=== PATIENT | male | born 1950 | race Caucasian/White ===

== ENCOUNTER 2017-08-07 10:08 | Inpatient (IN) | payer MEDICARE, BC ==
[~2017-08-07 10:08] MED LIST: Bisacodyl 5 MG Tab PO PRN; Cyclobenzaprine 10 MG Tab PO PRN; Docusate Sodium 100 MG Cap PO PRN; EPINEPHrine 1 MG/ML SDV ONE; Lactated Ringers 1,000 ML IV SCH; Lidocaine 1%/Sod Bicarbonate in NS 8.4% 1 ML Syringe IV PRN; Magnesium Hydroxide 400 MG/5 ML Susp 30 ML Cup PO PRN; Morphine 2 MG/ML Syringe IVPUSH PRN; Naloxone 0.4 MG/ML SDV IVPUSH PRN; Ondansetron 4 MG/2 ML SDV IVPUSH PRN; Ropivacaine 0.5% 5 MG/ML 30 ML SDV ONE; Sennosides 8.6 MG Tab PO PRN; Sodium Chloride 0.9% 10 ML Syringe FLUSH PRN
[2017-08-07] MEDS ORDERED: fentaNYL 250 MCG/5 ML SDV ONE (10:36)
[2017-08-07] MEDS ORDERED: Midazolam 1 MG/ML 2 ML SDV ONE (10:36)
[2017-08-07] MEDS ORDERED: Lidocaine 1% 4 ML ONE (10:36)
[2017-08-07] MEDS ORDERED: Rocuronium 50 MG/5 ML Vial ONE (10:36)
[2017-08-07] MEDS ORDERED: Propofol 200 MG/20 ML SDV ONE (10:36)
--- NOTE | 2017-08-07 10:49 | PCM.PREANE ---
Preanesthetic Assessment - Anesthesia/Transfusion/Family Hx Anesthesia History: Prior Anesthesia Without Reaction Family History of Anesthesia Reaction: No Transfusion History: Prior Transfusion Reaction - Review of Systems General: No Symptoms Pulmonary: No Symptoms Cardiovascular: No Symptoms Gastrointestinal: No Symptoms Neurological: No Symptoms Other: Reports: Thyroid Problems, Neck Pain (occ stiff neck ) - Physical Assessment NPO Status Date: 08/06/17 NPO Status Time: 21:30 Pulse: 63 O2 Sat by Pulse Oximetry: 96 Respiratory Rate: 18 Blood Pressure: 150/76 Temperature: 97 F Height: 5 ft 10 in Weight: 104.901 kg ASA Class: 2 Mental Status: Alert & Oriented x3 Airway Class: Mallampati = 1 Dentition: Reports: Normal Dentition Thyro-Mental Finger Breadths: 3 Mouth Opening Finger Breadths: 3 ROM/Head Extension: Full Lungs: Clear to Auscultation, Normal Respiratory Effort Cardiovascular: Regular Rate, Regular Rhythm - Lab Values: 07/18/17 Labs\ Hgb 14.4 Plt 228 Na 131 K 4.4 C; 95 Co2 27 BUN 17 Cr 0.8 - Imaging/EKG Impressions: 07/18/17 CXR Nothing acute 07/17/17 EKG SR 58 prolonged AK interval- LBBB - Allergies Allergies/Adverse Reactions: Allergies Allergy/AdvReac Type Severity Reaction Status Date / Time No Known Allergies Allergy Verified 08/04/17 14:37 - Blood Blood Available: No - Acknowledgements Anesthesia Type Planned: General Anesthesia Pt an Appropriate Candidate for the Planned Anesthesia: Yes Alternatives and Risks of Anesthesia Discussed w Pt/Guardian: Yes Pt/Guardian Understands and Agrees with Anesthesia Plan: Yes PreAnesthesia Questionnaire HEENT History: Reports: Impaired Vision Cardiovascular History: Reports: High Cholesterol, Hypertension, Other (See Below) Other Cardiovascular History: abnormal EKG Respiratory History: Reports: PE, Sleep Apnea Genitourinary History: Reports: None SILK WEAVER History: Reports: None Musculoskeletal History: Reports: Osteoarthritis, Other (See Below) Other Musculoskeletal History: left knee pain, right shoulder pain, shoulder arthritis, Neurological History: Reports: None Psychiatric History: Reports: Other (See Below) Other Psychiatric History: narcalepsy Endocrine/Metabolic History: Reports: Hypothyroidism, Obesity/BMI 30+ Hematologic History: Reports: None Immunologic History: Reports: None Oncologic (Cancer) History: Reports: None Dermatologic History: Reports: None - Past Surgical History Head Surgeries/Procedures: Reports: None HEENT Surgical History: Reports: Tonsillectomy Respiratory Surgical History: Reports: None GI Surgical History: Reports: Appendectomy, Colonoscopy Female Surgical History: Reports: None Male Surgical History: Reports: None Endocrine Surgical History: Reports: None Neurological Surgical History: Reports: None Musculoskeletal Surgical History: Reports: Knee Replacement, Other (See Below) Other Musculoskeletal Surgeries/Procedures:: lower back surgery, right femur hardware, Oncologic Surgical History: Reports: None - SUBSTANCE USE Smoking Status *Q: Former Smoker (quit 1972) Tobacco Use Within Last Twelve Months: No Second Hand Smoke Exposure: No Days Per Week of Alcohol Use: 1 Number of Drinks Per Day: 2 Total Drinks Per Week: 2 Recreational Drug Use History: No - HOME MEDS Home Medications: Home Meds Hydrochlorothiazide 25 mg PO DAILY 03/11/16 [History] Modafinil [Provigil] 400 mg PO DAILY 03/11/16 [History] Levothyroxine 175 mcg PO DAILY 08/04/17 [History] - CURRENT (IN HOUSE) MEDS Current Meds: Current Medications Aspirin (Ecotrin) 325 mg PO DAILY TORREY Bisacodyl (Dulcolax) 5 mg PO DAILY PRN PRN Reason: Constipation Cyclobenzaprine HCl (Flexeril) 10 mg PO TID PRN PRN Reason: Spasms Docusate Sodium (Colace) 100 mg PO BID PRN PRN Reason: Constipation Famotidine (Pepcid) 20 mg PO BID [facility] Lactated Ringer's (Ringers, Lactated) 1,000 mls @ 125 mls/hr IV ASDIRECTED [facility] Stop: 08/07/17 23:00 Cefazolin Sodium/Dextrose 2 gm (/ Premix) 50 mls @ 100 mls/hr IV Q8H [facility] Stop: 08/08/17 13:29 Lidocaine/Sodium Bicarbonate (Buffered Lidocaine 1% In Ns 8.4%) 0.25 ml IV ONETIME PRN PRN Reason: Prior to IV Start Stop: 08/07/17 18:00 Magnesium Hydroxide (Milk Of Magnesia) 30 ml PO BID PRN PRN Reason: Constipation Morphine Sulfate (Morphine) 2 mg IVPUSH Q2H PRN PRN Reason: Breakthrough Pain Naloxone HCl (Narcan) 0.1 mg IVPUSH Q5M PRN PRN Reason: Oversedation Ondansetron HCl (Zofran) 4 mg IVPUSH Q6H PRN PRN Reason: Nausea/Vomiting Oxycodone/Acetaminophen (Percocet 325-5 Mg) 1 - 2 tab PO Q4H PRN PRN Reason: Pain Senna (Senna) 8.6 mg PO BID PRN PRN Reason: Constipation Sodium Chloride (Saline Flush) 10 ml FLUSH ASDIRECTED PRN PRN Reason: Keep Vein Open Stop: 08/07/17 18:00 Discontinued Medications Cefazolin Sodium (Ancef) Confirm Administered Dose 2 gm .ROUTE .STK-MED ONE Stop: 08/07/17 10:54 Epinephrine HCl (Adrenalin 1:1000) Confirm Administered Dose 1 mg .ROUTE .STK- MED ONE Stop: 08/07/17 09:49 Fentanyl (Sublimaze) Confirm Administered Dose 250 mcg .ROUTE .STK-MED ONE Stop: 08/07/17 10:37 Lidocaine HCl (Xylocaine-Mpf 1%) Confirm Administered Dose 4 mls @ as directed .ROUTE .STK-MED ONE Stop: 08/07/17 10:37 Lactated Ringer's (Ringers, Lactated) Confirm Administered Dose 1,000 mls @ as directed .ROUTE .STK-MED ONE Stop: 08/07/17 10:54 Midazolam HCl (Versed 1 Mg/Ml) Confirm Administered Dose 2 mg .ROUTE .STK-MED ONE Stop: 08/07/17 10:37 Propofol (Diprivan 20 Ml) Confirm Administered Dose 200 mg .ROUTE .STK-MED ONE Stop: 08/07/17 10:37 Rocuronium Allyn (Zemuron) Confirm Administered Dose 50 mg .ROUTE .STK-MED ONE Stop: 08/07/17 10:37 Ropivacaine (Naropin 0.5%) Confirm Administered Dose 30 ml .ROUTE .STK-MED ONE Stop: 08/07/17 09:49
[2017-08-07] MEDS ORDERED: Lactated Ringers 1,000 ML ONE ×3 (10:53→16:16)
[2017-08-07] MEDS ORDERED: ceFAZolin 1 GM Vial ONE (10:59)
--- NOTE | 2017-08-07 11:55 | PCM.SN ---
- Free Text/Narrative Note: 08/07/17 1106- 1122 Time out performed. Requested to place right interscale block with ultrasound guidance and nerve stimulator for post op pain control per Dr. Rosario and patient. Preop diagnosis right shoulder osteoarthritis Procedure is right shoulder arthroplasty versus reverse total shoulder arthroplasty. Informed consent obtained. Monitors and O2 placed at 2 l per n/c. Versed 2 mg and Fentanyl 100 mcg given IV total. Patient awake and talking during procedure. Right neck and clavicle area prepped with chlorprep. Sterile gloves, hat and mask worn. US probe with sterile sleeve placed midclavicular with ID of brachial plexus and subclavian artery. Brachial plexus followed cephalad to level of cricoid. Lidocaine 1% local anesthetic injected prior to block placement. 22 g 2 inch stimplex needle advanced with US guidance to brachial plexus. Positive forearm response at .3 SmA with nerve stimulator. Ceased with saline injection.Ropivacaine 0.5% with epi 1:200,000 injected in increments of 5 ml with negative aspiration before each injection to a total of 30 ml. Good spread of local anesthetic seen on US. Patient tolerated procedure well. Vitals stable with no complaints. See nurses notes for VS. Post VS 125/74 96% 10 55
[2017-08-07] MEDS ORDERED: Ondansetron 4 MG/2 ML SDV IVPUSH PRN (13:37)
[2017-08-07] MEDS ORDERED: ePHEDrine 50 MG/ML SDV ONE (13:50)
[2017-08-07] MEDS ORDERED: fentaNYL 100 MCG/2 ML SDV ONE (14:16)
[2017-08-07] MEDS: Bupivacaine 0.25% 30 ML SDV ONE ×2 (14:41→15:37)
[2017-08-07] MEDS: ceFAZolin 1 GM Vial ONE ×2 (14:41→15:30)
[2017-08-07] MEDS: Iodine/Sodium Iodide 2% Tincture 30 ML Bottle ONE ×2 (14:42→15:29)
[2017-08-07] MEDS: Vancomycin 1 GM SDV ONE ×2 (14:43→15:34)
[2017-08-07] MEDS: HYDROmorphone 0.5 MG/0.5 ML Syringe IVPUSH PRN ×2 (16:13→16:32)
--- NOTE | 2017-08-07 16:14 | CR ---
Right shoulder: Three fluoroscopic spot views of the right shoulder were obtained. Study obtained utilizing C-arm device. Comparison: No prior hip study. Right shoulder prosthesis is seen. Components are aligned. Underlying bony structures appear intact. Fluoroscopy time not given at time of dictation. Impression: 1. Operative study showing right shoulder prosthesis. Diagnostic code #2
--- NOTE | 2017-08-07 16:17 | PCM.POSTAN ---
POST ANESTHESIA ASSESSMENT - MENTAL STATUS Mental Status: Alert, Oriented - VITAL SIGNS Pulse Rate: 69 SaO2: 97 Resp Rate: 17 Blood Pressure: 148/88 Temperature: 98.2 F - RESPIRATORY Respiratory Status: Respiratory Rate WNL, Airway Patent, O2 Saturation Stable, Supplemental Oxygen - CARDIOVASCULAR CV Status: Pulse Rate WNL, Blood Pressure Stable - GASTROINTESTINAL GI Status: No Symptoms - PAIN Pain Score: 4 - POST OP HYDRATION Hydration Status: Adequate & Stable
[2017-08-07] MEDS: fentaNYL 100 MCG/2 ML SDV IVPUSH PRN ×2 (16:24→16:45)
[2017-08-07] MEDS ORDERED: HYDROmorphone 0.5 MG/0.5 ML Syringe IVPUSH PRN (16:42)
--- NOTE | 2017-08-07 16:54 | CR ---
Right shoulder: Portable view of the right shoulder was obtained. Comparison: Previous operative study performed earlier on the same day. Right shoulder prosthesis is seen. Components are aligned. Bony structures are osteopenic. Soft tissue air noted from the surgical procedure. Impression: 1. Satisfactory postoperative radiographic appearance of recently placed right shoulder prosthesis. Diagnostic code #2
[2017-08-07] MEDS ORDERED: Pneumococcal Polyvalent-23 Vaccine 0.5 ML SDV IM ONE (17:44)
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
[2017-08-07] MEDS: Acetaminophen/oxyCODONE 325-5 MG Tab PO PRN (21:30)
[2017-08-07] MEDS: Famotidine 20 MG Tab PO SCH (21:31)
[2017-08-07] MEDS: ceFAZolin 2 GM in Premix Bag 1 BAG IV SCH (21:33)
[2017-08-07] MEDS ORDERED: hydrALAZINE 10 MG Tab PO PRN (21:35)
[2017-08-08] MEDS: ceFAZolin 2 GM in Premix Bag 1 BAG IV SCH ×2 (04:53→13:27)
[2017-08-08] MEDS: Acetaminophen/oxyCODONE 325-5 MG Tab PO PRN ×2 (04:54→09:56)
[2017-08-08] MEDS ORDERED: Diphtheria,Pertussis(Acell),Tetanus Vaccine 0.5 ML SDV IM ONE (08:04)
[2017-08-08] MEDS ORDERED: Aspirin 325 MG Tab.EC PO SCH (09:00)
[2017-08-08] MEDS ORDERED: Modafinil 200 MG Tab PO SCH (09:00)
[2017-08-08] MEDS ORDERED: Hydrochlorothiazide 25 MG Tab PO SCH (09:00)
[2017-08-08] MEDS: Famotidine 20 MG Tab PO SCH (09:55)
--- NOTE | 2017-08-08 10:24 | PCM48HPAN ---
Post Anesthesia Note - EVALUATION WITHIN 48HRS OF ANESTHETIC Vital Signs in Normal Range: Yes Patient Participated in Evaluation: Yes Respiratory Function Stable: Yes Airway Patent: Yes Cardiovascular Function Stable: Yes Hydration Status Stable: Yes Pain Control Satisfactory: Yes Nausea and Vomiting Control Satisfactory: Yes Mental Status Recovered: Yes
--- NOTE | 2017-08-08 11:28 | PCM.CONSN ---
- General Info Date of Service: 08/08/17 Admission Dx/Problem (Free Text): Admission Diagnosis/Problem Admission Diagnosis/Problem Osteoarthritis of glenohumeral joint POD #[address] Rosario. Pain under good control, no nausea. Voiding. BM this am. Tolerating meals. Ambulating and doing well with PT. Brace fitting well. VSS. Labs stable, hgb 12.3 Functional Status: Reports: Pain Controlled, Tolerating Diet, Ambulating, Urinating, Incentive Spirometry. Denies: New Symptoms - Review of Systems General: Reports: No Symptoms HEENT: Reports: No Symptoms Pulmonary: Reports: No Symptoms Cardiovascular: Reports: No Symptoms Gastrointestinal: Reports: No Symptoms Genitourinary: Reports: No Symptoms Musculoskeletal: Reports: Shoulder Pain, Arm Pain Skin: Reports: No Symptoms Neurological: Reports: No Symptoms Psychiatric: Reports: No Symptoms - Patient Data Vitals - Most Recent: Last Vital Signs Temp 96.6 F 08/08/17 09:11 Pulse 74 08/08/17 09:11 Resp 19 08/08/17 09:11 BP 129/59 L 08/08/17 09:11 Pulse Ox 92 L 08/08/17 09:11 Weight - Most Recent: 240 lb 14.4 oz I&O - Last 24 Hours: Intake & Output 08/07/17 08/08/17 08/08/17 22:59 06:59 14:59 Intake Total 180 1955 Output Total 400 Balance 180 1555 Lab Results Last 24 Hours: Laboratory Results - last 24 hr 08/08/17 08/08/17 Range/Units 05:33 05:33 WBC 7.30 (4.23-9.07) K/mm3 RBC 4.00 L (4.63-6.08) M/mm3 Hgb 12.3 L (13.7-17.5) gm/L Hct 36.1 L (40.1-51.0) % MCV 90.3 (79.0-92.2) fl MCH 30.8 (25.7-32.2) pg MCHC 34.1 (32.2-35.5) g/dl RDW Std Deviation 43.3 (35.1-43.9) fL Plt Count 192 (163-337) K/mm3 MPV 11.0 (9.4-12.3) fl Sodium 134 L (136-145) mEq/L Potassium 3.8 (3.5-5.1) mEq/L Chloride 99 (98-107) mEq/L Carbon Dioxide 26 (21-32) mEq/L Anion Gap 12.8 (5-15) BUN 13 (7-18) mg/dL Creatinine 0.9 (0.7-1.3) mg/dL Est Cr Clr Drug Dosing 82.24 mL/min Estimated GFR (MDRD) > 60 (>60) mL/min BUN/Creatinine Ratio 14.4 (14-18) Glucose 159 H (80-115) mg/dL Calcium 8.2 L (8.5-10.1) mg/dL Total Bilirubin 0.5 (0.2-1.0) mg/dL AST 28 (15-37) U/L ALT 34 (16-63) U/L Alkaline Phosphatase 72 (46-116) U/L Total Protein 5.9 L (6.4-8.2) g/dl Albumin 2.7 L (3.4-5.0) g/dl Globulin 3.2 gm/dL Albumin/Globulin Ratio 0.8 L (1-2) Med Orders - Current: Current Medications Aspirin (Ecotrin) 325 mg PO DAILY [facility] Last Admin: 08/08/17 09:55 Dose: 325 mg Bisacodyl (Dulcolax) 5 mg PO DAILY PRN PRN Reason: Constipation Cyclobenzaprine HCl (Flexeril) 10 mg PO TID PRN PRN Reason: Spasms Last Admin: 08/07/17 23:59 Dose: 10 mg Docusate Sodium (Colace) 100 mg PO BID PRN PRN Reason: Constipation Famotidine (Pepcid) 20 mg PO BID [facility] Last Admin: 08/08/17 09:55 Dose: 20 mg Hydrochlorothiazide (Hydrochlorothiazide) 25 mg PO DAILY [facility] Last Admin: 08/08/17 09:55 Dose: 25 mg Cefazolin Sodium/Dextrose 2 gm (/ Premix) 50 mls @ 100 mls/hr IV Q8H [facility] Stop: 08/08/17 13:29 Last Admin: 08/08/17 04:53 Dose: 100 mls/hr Levothyroxine Sodium (Levothyroxine) 175 mcg PO ACBRK [facility] Last Admin: 08/08/17 05:42 Dose: Not Given Magnesium Hydroxide (Milk Of Magnesia) 30 ml PO BID PRN PRN Reason: Constipation Modafinil (Provigil) 400 mg PO DAILY [facility] Last Admin: 08/08/17 09:55 Dose: 200 mg Morphine Sulfate (Morphine) 2 mg IVPUSH Q2H PRN PRN Reason: Breakthrough Pain Naloxone HCl (Narcan) 0.1 mg IVPUSH Q5M PRN PRN Reason: Oversedation Ondansetron HCl (Zofran) 4 mg IVPUSH Q6H PRN PRN Reason: Nausea/Vomiting Oxycodone/Acetaminophen (Percocet 325-5 Mg) 1 - 2 tab PO Q4H PRN PRN Reason: Pain Last Admin: 08/08/17 09:56 Dose: 2 tab Senna (Senna) 8.6 mg PO BID PRN PRN Reason: Constipation Discontinued Medications Bupivacaine HCl (Marcaine 0.25%) Confirm Administered Dose 30 ml .ROUTE .STK- MED ONE Stop: 08/07/17 11:00 Last Admin: 08/07/17 15:37 Dose: 10 ml Cefazolin Sodium (Ancef) Confirm Administered Dose 2 gm .ROUTE .STK-MED ONE Stop: 08/07/17 10:54 Last Admin: 08/07/17 15:30 Dose: 2 gm Cefazolin Sodium (Ancef) Confirm Administered Dose 2 gm .ROUTE .STK-MED ONE Stop: 08/07/17 11:00 Diphtheria/Tetanus/Acell Pertussis (Adacel) 0.5 ml IM .ONCE ONE Stop: 08/08/17 08:05 Ephedrine Sulfate (Ephedrine Sulfate) Confirm Administered Dose 50 mg .ROUTE .STK-MED ONE Stop: 08/07/17 13:51 Epinephrine HCl (Adrenalin 1:1000) Confirm Administered Dose 1 mg .ROUTE .STK- MED ONE Stop: 08/07/17 09:49 Fentanyl (Sublimaze) Confirm Administered Dose 250 mcg .ROUTE .STK-MED ONE Stop: 08/07/17 10:37 Fentanyl (Sublimaze) 50 mcg IVPUSH Q5M PRN PRN Reason: Pain Stop: 08/07/17 16:00 Last Admin: 08/07/17 16:45 Dose: 50 mcg Fentanyl (Sublimaze) Confirm Administered Dose 100 mcg .ROUTE .STK-MED ONE Stop: 08/07/17 14:17 Hydralazine HCl (Apresoline) 10 mg PO Q6H PRN PRN Reason: Hypertension Hydromorphone HCl (Dilaudid) 0.5 mg IVPUSH Q15M PRN PRN Reason: severe pain Stop: 08/07/17 16:00 Last Admin: 08/07/17 16:32 Dose: 0.5 mg Hydromorphone HCl (Dilaudid) 0.5 mg IVPUSH Q15M PRN PRN Reason: severe pain Last Admin: 08/07/17 16:50 Dose: 0.5 mg Lactated Ringer's (Ringers, Lactated) 1,000 mls @ 125 mls/hr IV ASDIRECTED [facility] Stop: 08/07/17 23:00 Last Admin: 08/07/17 10:50 Dose: 125 mls/hr Lidocaine HCl (Xylocaine-Mpf 1%) Confirm Administered Dose 4 mls @ as directed .ROUTE .STK-MED ONE Stop: 08/07/17 10:37 Lactated Ringer's (Ringers, Lactated) Confirm Administered Dose 1,000 mls @ as directed .ROUTE .STK-MED ONE Stop: 08/07/17 10:54 Lactated Ringer's (Ringers, Lactated) Confirm Administered Dose 1,000 mls @ as directed .ROUTE .STK-MED ONE Stop: 08/07/17 14:44 Lactated Ringer's (Ringers, Lactated) Confirm Administered Dose 1,000 mls @ as directed .ROUTE .STK-MED ONE Stop: 08/07/17 16:17 Iodine (Iodine 2% Mild Tincture) Confirm Administered Dose 30 ml .ROUTE .STK- MED ONE Stop: 08/07/17 11:00 Last Admin: 08/07/17 15:29 Dose: 18 ml Lidocaine/Sodium Bicarbonate (Buffered Lidocaine 1% In Ns 8.4%) 0.25 ml IV ONETIME PRN PRN Reason: Prior to IV Start Stop: 08/07/17 18:00 Last Admin: 08/07/17 10:50 Dose: 0.25 ml Midazolam HCl (Versed 1 Mg/Ml) Confirm Administered Dose 2 mg .ROUTE .STK-MED ONE Stop: 08/07/17 10:37 Ondansetron HCl (Zofran) 4 mg IVPUSH ONETIME PRN PRN Reason: Nausea/Vomiting Stop: 08/07/17 16:00 Pneumococcal Polyvalent Vaccine (Pneumovax 23) 0.5 ml IM .ONCE ONE Stop: 08/07/17 17:45 Propofol (Diprivan 20 Ml) Confirm Administered Dose 200 mg .ROUTE .STK-MED ONE Stop: 08/07/17 10:37 Rocuronium [place] (Zemuron) Confirm Administered Dose 50 mg .ROUTE .STK-MED ONE Stop: 08/07/17 10:37 Ropivacaine (Naropin 0.5%) Confirm Administered Dose 30 ml .ROUTE .STK-MED ONE Stop: 08/07/17 09:49 Sodium Chloride (Saline Flush) 10 ml FLUSH ASDIRECTED PRN PRN Reason: Keep Vein Open Stop: 08/07/17 18:00 Tranexamic Acid (Cyklokapron) Confirm Administered Dose 1,000 mg .ROUTE .STK- MED ONE Stop: 08/07/17 10:59 Last Admin: 08/07/17 15:35 Dose: 1,000 mg Vancomycin HCl (Vancomycin) Confirm Administered Dose 1 gm .ROUTE .STK-MED ONE Stop: 08/07/17 11:00 Last Admin: 08/07/17 15:34 Dose: 1 gm - Exam Quality Assessment: DVT Prophylaxis General: Alert, Oriented, Cooperative, No Acute Distress HEENT: Pupils Equal, EOMI, Mucous Membr. Moist/[place] Neck: Supple Lungs: Clear to Auscultation, Normal Respiratory Effort, Decreased Breath Sounds (bases) Cardiovascular: Regular Rate, Regular Rhythm GI/Abdominal Exam: Normal Bowel Sounds, Soft, Non-Tender (Male) Exam: Deferred Extremities: No Pedal Edema, Normal Capillary Refill, Other (brace to rt arm/ shoulder; ice to rt shoulder. Wiggles fingers to rt, CMS +) Peripheral Pulses: 2+: Radial (L), Radial (R) Neurological: No New Focal Deficit Psy/Mental Status: Alert, Normal Affect, Normal Mood Consult PN Assessment/Plan POD#: 1 Procedures: Procedures ASSAY OF FERRITIN (02/19/16) ASSAY OF FREE THYROXINE (03/17/17) ASSAY OF PREALBUMIN (07/18/17) ASSAY OF SERUM ALBUMIN (07/18/17) ASSAY THYROID STIM HORMONE (03/17/17) CARDIOVASCULAR STRESS TEST (03/02/16) CHEST X-RAY 2VW FRONTAL&LATL (07/18/17) COMPLETE CBC W/AUTO DIFF WBC (07/18/17) COMPREHEN METABOLIC PANEL (03/14/16) DXA BONE DENSITY AXIAL (07/25/17) GAIT TRAINING THERAPY (03/14/16) HT MUSCLE IMAGE SPECT MULT (03/02/16) LIPID PANEL (11/04/16) MEASURE BLOOD OXYGEN LEVEL (03/14/16) METABOLIC PANEL TOTAL CA (07/18/17) MR-STAPH DNA AMP PROBE (07/25/17) OT EVALUATION (03/14/16) PROTHROMBIN TIME (07/18/17) PT EVALUATION (03/14/16) ROUTINE VENIPUNCTURE (03/14/16) SELF CARE MNGMENT TRAINING (03/14/16) THERAPEUTIC ACTIVITIES (03/14/16) THERAPEUTIC EXERCISES (03/14/16) THROMBOPLASTIN TIME PARTIAL (07/18/17) TOTAL KNEE ARTHROPLASTY (03/14/16) X-RAY EXAM OF KNEE 1 OR 2 (03/14/16) (1) Status post total shoulder arthroplasty SNOMED Code(s): 403147660 Code(s): Z96.619 - PRESENCE OF UNSPECIFIED ARTIFICIAL SHOULDER JOINT Priority: High Current Visit: Yes Qualifiers: Laterality: right Qualified Code(s): Z96.611 - Presence of right artificial shoulder joint (2) Osteoarthritis SNOMED Code(s): 152559271 Code(s): M19.90 - UNSPECIFIED OSTEOARTHRITIS, UNSPECIFIED SITE Priority: High Current Visit: Yes Qualifiers: Osteoarthritis location: shoulder Osteoarthritis type: primary Laterality : right Qualified Code(s): M19.011 - Primary osteoarthritis, right shoulder (3) HTN (hypertension) SNOMED Code(s): 86399546 Code(s): I10 - ESSENTIAL (PRIMARY) HYPERTENSION Priority: Low Current Visit: Yes Qualifiers: Hypertension type: unspecified Qualified Code(s): I10 - Essential (primary ) hypertension (4) LBBB (left bundle branch block) SNOMED Code(s): 81243618 Code(s): I44.7 - LEFT BUNDLE-BRANCH BLOCK, UNSPECIFIED Priority: Low Current Visit: No (5) HLD (hyperlipidemia) SNOMED Code(s): 02397746 Code(s): E78.5 - HYPERLIPIDEMIA, UNSPECIFIED Priority: Low Current Visit : No Qualifiers: Hyperlipidemia type: unspecified Qualified Code(s): E78.5 - Hyperlipidemia , unspecified (6) Sleep apnea SNOMED Code(s): 21081080 Code(s): G47.30 - SLEEP APNEA, UNSPECIFIED Priority: Low Current Visit: No Qualifiers: Sleep apnea type: unspecified type Qualified Code(s): G47.30 - Sleep apnea , unspecified (7) Hypothyroidism SNOMED Code(s): 33322519 Code(s): E03.9 - HYPOTHYROIDISM, UNSPECIFIED Priority: Low Current Visit : No Qualifiers: Hypothyroidism type: unspecified Qualified Code(s): E03.9 - Hypothyroidism , unspecified Problem List Initiated/Reviewed/Updated: Yes Plan: I/P: Acute: S/P right total shoulder arthroplasty - postoperative day 1 -DVT prophylaxis and pain management per primary care team -PT/OT -IS/RT -VSS -Labs stable, hgb 12.3 Osteoarthritis of right glenohumeral joint--as above -Pain management per primary care team Chronic: Hypertension- stable; cont home meds HLD - cont home meds LBBB Sleep apnea - Home CPAP, RT to apply Hypothyroidism -cont home meds Obesity Plan: SW/CM for discharge planning--OK to [place] home today with from Hospitalist standpoint; doing well, medically stable. GI prophylaxis Home medications as indicated Other orders as listed above Routine AM labs He is a full code. His PCP is Anmol Velazquez PA-C at [facility]
[2017-08-08 12:48] VITALS: BP 135/80
--- NOTE | 2017-08-08 13:50 | PCM.SURGPN ---
- General Info Date of Service: 08/08/17 POD#: 1 Functional Status: Reports: Pain Controlled, Tolerating Diet, Ambulating, Urinating, Incentive Spirometry, Other (The pt feels prepared for discharge to home. ) - Patient Data Vitals - Most Recent: Last Vital Signs Temp 97.9 F 08/08/17 12:09 Pulse 73 08/08/17 12:09 Resp 19 08/08/17 12:09 BP 135/80 08/08/17 12:09 Pulse Ox 95 08/08/17 12:09 Weight - Most Recent: 240 lb 14.4 oz I&O - Last 24 Hours: Intake & Output 08/07/17 08/08/17 08/08/17 22:59 06:59 14:59 Intake Total 180 1955 Output Total 400 Balance 180 1555 Lab Results Last 24 Hrs: Laboratory Results - last 24 hr 08/08/17 08/08/17 Range/Units 05:33 05:33 WBC 7.30 (4.23-9.07) K/mm3 RBC 4.00 L (4.63-6.08) M/mm3 Hgb 12.3 L (13.7-17.5) gm/L Hct 36.1 L (40.1-51.0) % MCV 90.3 (79.0-92.2) fl MCH 30.8 (25.7-32.2) pg MCHC 34.1 (32.2-35.5) g/dl RDW Std Deviation 43.3 (35.1-43.9) fL Plt Count 192 (163-337) K/mm3 MPV 11.0 (9.4-12.3) fl Sodium 134 L (136-145) mEq/L Potassium 3.8 (3.5-5.1) mEq/L Chloride 99 (98-107) mEq/L Carbon Dioxide 26 (21-32) mEq/L Anion Gap 12.8 (5-15) BUN 13 (7-18) mg/dL Creatinine 0.9 (0.7-1.3) mg/dL Est Cr Clr Drug Dosing 82.24 mL/min Estimated GFR (MDRD) > 60 (>60) mL/min BUN/Creatinine Ratio 14.4 (14-18) Glucose 159 H (80-115) mg/dL Calcium 8.2 L (8.5-10.1) mg/dL Total Bilirubin 0.5 (0.2-1.0) mg/dL AST 28 (15-37) U/L ALT 34 (16-63) U/L Alkaline Phosphatase 72 (46-116) U/L Total Protein 5.9 L (6.4-8.2) g/dl Albumin 2.7 L (3.4-5.0) g/dl Globulin 3.2 gm/dL Albumin/Globulin Ratio 0.8 L (1-2) Med Orders - Current: Current Medications Aspirin (Ecotrin) 325 mg PO DAILY [facility] Last Admin: 08/08/17 09:55 Dose: 325 mg Bisacodyl (Dulcolax) 5 mg PO DAILY PRN PRN Reason: Constipation Cyclobenzaprine HCl (Flexeril) 10 mg PO TID PRN PRN Reason: Spasms Last Admin: 08/07/17 23:59 Dose: 10 mg Docusate Sodium (Colace) 100 mg PO BID PRN PRN Reason: Constipation Famotidine (Pepcid) 20 mg PO BID [facility] Last Admin: 08/08/17 09:55 Dose: 20 mg Hydrochlorothiazide (Hydrochlorothiazide) 25 mg PO DAILY [facility] Last Admin: 08/08/17 09:55 Dose: 25 mg Levothyroxine Sodium (Levothyroxine) 175 mcg PO ACBRK [facility] Last Admin: 08/08/17 05:42 Dose: Not Given Magnesium Hydroxide (Milk Of Magnesia) 30 ml PO BID PRN PRN Reason: Constipation Modafinil (Provigil) 400 mg PO DAILY [facility] Last Admin: 08/08/17 09:55 Dose: 200 mg Morphine Sulfate (Morphine) 2 mg IVPUSH Q2H PRN PRN Reason: Breakthrough Pain Naloxone HCl (Narcan) 0.1 mg IVPUSH Q5M PRN PRN Reason: Oversedation Ondansetron HCl (Zofran) 4 mg IVPUSH Q6H PRN PRN Reason: Nausea/Vomiting Oxycodone/Acetaminophen (Percocet 325-5 Mg) 1 - 2 tab PO Q4H PRN PRN Reason: Pain Last Admin: 08/08/17 09:56 Dose: 2 tab Senna (Senna) 8.6 mg PO BID PRN PRN Reason: Constipation Discontinued Medications Bupivacaine HCl (Marcaine 0.25%) Confirm Administered Dose 30 ml .ROUTE .STK- MED ONE Stop: 08/07/17 11:00 Last Admin: 08/07/17 15:37 Dose: 10 ml Cefazolin Sodium (Ancef) Confirm Administered Dose 2 gm .ROUTE .STK-MED ONE Stop: 08/07/17 10:54 Last Admin: 08/07/17 15:30 Dose: 2 gm Cefazolin Sodium (Ancef) Confirm Administered Dose 2 gm .ROUTE .STK-MED ONE Stop: 08/07/17 11:00 Diphtheria/Tetanus/Acell Pertussis (Adacel) 0.5 ml IM .ONCE ONE Stop: 08/08/17 08:05 Ephedrine Sulfate (Ephedrine Sulfate) Confirm Administered Dose 50 mg .ROUTE .STK-MED ONE Stop: 08/07/17 13:51 Epinephrine HCl (Adrenalin 1:1000) Confirm Administered Dose 1 mg .ROUTE .ST- MED ONE Stop: 08/07/17 09:49 Fentanyl (Sublimaze) Confirm Administered Dose 250 mcg .ROUTE .ST-MED ONE Stop: 08/07/17 10:37 Fentanyl (Sublimaze) 50 mcg IVPUSH Q5M PRN PRN Reason: Pain Stop: 08/07/17 16:00 Last Admin: 08/07/17 16:45 Dose: 50 mcg Fentanyl (Sublimaze) Confirm Administered Dose 100 mcg .ROUTE .STK-MED ONE Stop: 08/07/17 14:17 Hydralazine HCl (Apresoline) 10 mg PO Q6H PRN PRN Reason: Hypertension Hydromorphone HCl (Dilaudid) 0.5 mg IVPUSH Q15M PRN PRN Reason: severe pain Stop: 08/07/17 16:00 Last Admin: 08/07/17 16:32 Dose: 0.5 mg Hydromorphone HCl (Dilaudid) 0.5 mg IVPUSH Q15M PRN PRN Reason: severe pain Last Admin: 08/07/17 16:50 Dose: 0.5 mg Lactated Ringer's (Ringers, Lactated) 1,000 mls @ 125 mls/hr IV ASDIRECTED [facility] Stop: 08/07/17 23:00 Last Admin: 08/07/17 10:50 Dose: 125 mls/hr Cefazolin Sodium/Dextrose 2 gm (/ Premix) 50 mls @ 100 mls/hr IV Q8H [facility] Stop: 08/08/17 13:29 Last Admin: 08/08/17 13:27 Dose: 100 mls/hr Lidocaine HCl (Xylocaine-Mpf 1%) Confirm Administered Dose 4 mls @ as directed .ROUTE .STK-MED ONE Stop: 08/07/17 10:37 Lactated Ringer's (Ringers, Lactated) Confirm Administered Dose 1,000 mls @ as directed .ROUTE .STK-MED ONE Stop: 08/07/17 10:54 Lactated Ringer's (Ringers, Lactated) Confirm Administered Dose 1,000 mls @ as directed .ROUTE .STK-MED ONE Stop: 08/07/17 14:44 Lactated Ringer's (Ringers, Lactated) Confirm Administered Dose 1,000 mls @ as directed .ROUTE .STK-MED ONE Stop: 08/07/17 16:17 Iodine (Iodine 2% Mild Tincture) Confirm Administered Dose 30 ml .ROUTE .STK- MED ONE Stop: 08/07/17 11:00 Last Admin: 08/07/17 15:29 Dose: 18 ml Lidocaine/Sodium Bicarbonate (Buffered Lidocaine 1% In Ns 8.4%) 0.25 ml IV ONETIME PRN PRN Reason: Prior to IV Start Stop: 08/07/17 18:00 Last Admin: 08/07/17 10:50 Dose: 0.25 ml Midazolam HCl (Versed 1 Mg/Ml) Confirm Administered Dose 2 mg .ROUTE .STK-MED ONE Stop: 08/07/17 10:37 Ondansetron HCl (Zofran) 4 mg IVPUSH ONETIME PRN PRN Reason: Nausea/Vomiting Stop: 08/07/17 16:00 Pneumococcal Polyvalent Vaccine (Pneumovax 23) 0.5 ml IM .ONCE ONE Stop: 08/07/17 17:45 Last Admin: 08/08/17 13:22 Dose: 0.5 ml Propofol (Diprivan 20 Ml) Confirm Administered Dose 200 mg .ROUTE .STK-MED ONE Stop: 08/07/17 10:37 Rocuronium [place] (Zemuron) Confirm Administered Dose 50 mg .ROUTE .STK-MED ONE Stop: 08/07/17 10:37 Ropivacaine (Naropin 0.5%) Confirm Administered Dose 30 ml .ROUTE .STK-MED ONE Stop: 08/07/17 09:49 Sodium Chloride (Saline Flush) 10 ml FLUSH ASDIRECTED PRN PRN Reason: Keep Vein Open Stop: 08/07/17 18:00 Tranexamic Acid (Cyklokapron) Confirm Administered Dose 1,000 mg .ROUTE .STK- MED ONE Stop: 08/07/17 10:59 Last Admin: 08/07/17 15:35 Dose: 1,000 mg Vancomycin HCl (Vancomycin) Confirm Administered Dose 1 gm .ROUTE .STK-MED ONE Stop: 08/07/17 11:00 Last Admin: 08/07/17 15:34 Dose: 1 gm - Exam Wound/Incisions: Dressing Dry and Intact General: Alert, Cooperative, No Acute Distress Lungs: Normal Respiratory Effort Extremities: Other (Active right elbow, wrist, hand motion noted. NVS intact for RUE.) - Problem List Review Problem List Initiated/Reviewed/Updated: Yes - My Orders Last 24 Hours: Active Orders 24 hr Category Date Time Status Communication Order [RC] ROUTINE Care 08/07/17 13:37 Inactive Cooling Warming Measures [RC] ASDIRECTED Care 08/07/17 13:37 Inactive Oxygen Therapy [RC] ASDIRECTED Care 08/07/17 13:37 Inactive Ready for Discharge [RC] PER UNIT ROUTINE Care 08/08/17 11:32 Active Vaccines to be Administered [RC] PER UNIT ROUTINE Care 08/08/17 08:05 Active Vital Signs [RC] Q15M Care 08/07/17 13:37 Inactive Aspirin [Ecotrin] Med 08/08/17 09:00 Active 325 mg PO DAILY Famotidine [Pepcid] Med 08/07/17 21:00 Active 20 mg PO BID Hydrochlorothiazide Med 08/08/17 09:00 Active 25 mg PO DAILY Levothyroxine Med 08/08/17 06:00 Active 175 mcg PO ACBRK Modafinil [Provigil] Med 08/08/17 09:00 Active 400 mg PO DAILY Medication Orders Aspirin (Ecotrin) 325 mg PO DAILY [facility] Last Admin: 08/08/17 09:55 Dose: 325 mg Bisacodyl (Dulcolax) 5 mg PO DAILY PRN PRN Reason: Constipation Cyclobenzaprine HCl (Flexeril) 10 mg PO TID PRN PRN Reason: Spasms Last Admin: 08/07/17 23:59 Dose: 10 mg Docusate Sodium (Colace) 100 mg PO BID PRN PRN Reason: Constipation Famotidine (Pepcid) 20 mg PO BID [facility] Last Admin: 08/08/17 09:55 Dose: 20 mg Admin: 08/07/17 21:31 Dose: 20 mg Hydrochlorothiazide (Hydrochlorothiazide) 25 mg PO DAILY [facility] Last Admin: 08/08/17 09:55 Dose: 25 mg Levothyroxine Sodium (Levothyroxine) 175 mcg PO ACBRK [facility] Last Admin: 08/08/17 05:42 Dose: Not Given Admin: 08/08/17 04:58 Dose: 175 mcg Magnesium Hydroxide (Milk Of Magnesia) 30 ml PO BID PRN PRN Reason: Constipation Modafinil (Provigil) 400 mg PO DAILY [facility] Last Admin: 08/08/17 09:55 Dose: 200 mg Morphine Sulfate (Morphine) 2 mg IVPUSH Q2H PRN PRN Reason: Breakthrough Pain Naloxone HCl (Narcan) 0.1 mg IVPUSH Q5M PRN PRN Reason: Oversedation Ondansetron HCl (Zofran) 4 mg IVPUSH Q6H PRN PRN Reason: Nausea/Vomiting Oxycodone/Acetaminophen (Percocet 325-5 Mg) 1 - 2 tab PO Q4H PRN PRN Reason: Pain Last Admin: 08/08/17 09:56 Dose: 2 tab Admin: 08/08/17 04:54 Dose: 2 tab Admin: 08/07/17 21:30 Dose: 2 tab Senna (Senna) 8.6 mg PO BID PRN PRN Reason: Constipation - Assessment Assessment (Free Text/Narrative):: POD#1 - right TSA - Plan Plan (Free Text/Narrative):: 1. Discharge to home today. 2. Outpatient therapy. 3. 325mg ASA daily and frequent mobility. The pt's case was discussed with Dr. Rosario.
--- NOTE | 2017-08-10 08:59 | PCM.DCSUM1 ---
Discharge Summary - Hospital Course Brief History: Kevyn is a 67 yo male who underwent right TSA with Dr. Rosario on . The procedure was completed under general anesthesia. The pt tolerated the procedure well and was admitted to the Medical-Surgical Unit. The pt received Ancef eleuterio-operatively. He participated in P.T. and O.T. and progressed well. The pt's surgical wound was dressed with a Mepilex dressing and remained clean and dry. On POD#1, the pt was started on 325mg ASA daily for VTE prophylaxis. The pt used TEDs and SCDs also. On POD#1, the pt's hemoglobin was 12.3. Medial management was provided by the Hospitalist service and the pt's hospital course was uneventful. On POD#2, the pt was deemed appropriate for discharge to home with his family. - Discharge Data Discharge Date: 08/08/17 Discharge Disposition: Home, Self-Care 01 Condition: Good - Patient Summary/Data Consults: Consultations 08/07/17 07:12 Consult to Physician [CONS] Routine OT Evaluation and Treatment [CONS] Routine 08/07/17 07:16 PT Evaluation and Treatment [CONS] Routine - Patient Instructions Diet: Usual Diet as Tolerated Activity: Apply Ice, As Tolerated, Elevate Extremity, Full Weight Bearing Activity, Other: Total Shoulder Arthroplasty protocol. Driving: Do Not Drive Showering/Bathing: May Shower Wound/Incision Care: Keep Operative Site/Wound Site Clean and Dry, Do NOT Change Dressing Notify Provider of: Fever, Increased Pain, Swelling and Redness, Drainage, Nausea and/or Vomiting Other/Special Instructions: Please get up and moving around every hour while awake. This helps to prevent blood clots. Please take 325mg aspirin daily - this also helps to prevent blood clots. The medication is being used for blood clot prevention and not for pain control, so please use the medication daily as directed. Please wear the YOANNA hose during the day and remove them at night. Please schedule for P.T. or O.T. You will follow the TOTAL SHOULDER ARTHROPLASTY PROTOCOL. Complete the exercises and stretches that were instructed in the Hospital. Please use the pain medication and muscle relaxant as needed. The medication may cause drowsiness and/or constipation. You could use a stool softener like docusate sodium or Colace 100mg twice daily and/or a laxative like polyethylene glycol or Miralax daily for constipation. Contact your primary care provider for further instructions if you are constipated. Please schedule an appointment with your primary care provider for 'routine post -op care'. Use the incentive spirometer often. Please place ice to the shoulder often. Please elevate the limb to decrease swelling. Keep the Mepilex dressing in place until follow-up. Please call [phone] with questions or concerns. - Discharge Plan Prescriptions/Med Rec: Acetaminophen/oxyCODONE [Percocet 325-5 MG] 1 - 2 tab PO Q4H PRN #60 tablet PRN Reason: Pain Aspirin [Ecotrin] 325 mg PO DAILY #40 tab.ec Cyclobenzaprine [Flexeril] 10 mg PO Q8H PRN #40 tablet PRN Reason: muscle spasms Home Medications: Home Meds Hydrochlorothiazide 25 mg PO DAILY 03/11/16 [History] Modafinil [Provigil] 400 mg PO DAILY 03/11/16 [History] Levothyroxine 175 mcg PO DAILY 08/04/17 [History] Acetaminophen/oxyCODONE [Percocet 325-5 MG] 1 - 2 tab PO Q4H PRN #60 tablet [Rx] Aspirin [Ecotrin] 325 mg PO DAILY #40 tab.ec 08/08/17 [Rx] Cyclobenzaprine [Flexeril] 10 mg PO Q8H PRN #40 tablet 08/08/17 [Rx] Docusate Sodium [Colace] 100 mg PO BID PRN cap 08/08/17 [Rx] Famotidine [Pepcid] 20 mg PO BID #60 tablet 08/08/17 [Rx] Patient Handouts: Shoulder Joint Replacement, Care After Referrals: Stacie Alva PA-C [Physician Audiovisual Aids Technician] - 08/15/17 8:30 am (2nd follow up appoint 08/22/17 at 0830) - Patient Data Vitals - Most Recent: Last Vital Signs Temp 97.9 F 08/08/17 12:09 Pulse 73 08/08/17 12:09 Resp 19 08/08/17 12:09 BP 135/80 08/08/17 12:09 Pulse Ox 95 08/08/17 12:09 Weight - Most Recent: 240 lb 14.4 oz Med Orders - Current: Current Medications Discontinued Medications Aspirin (Ecotrin) 325 mg PO DAILY [facility] Last Admin: 08/08/17 09:55 Dose: 325 mg Bisacodyl (Dulcolax) 5 mg PO DAILY PRN PRN Reason: Constipation Bupivacaine HCl (Marcaine 0.25%) Confirm Administered Dose 30 ml .ROUTE .STK- MED ONE Stop: 08/07/17 11:00 Last Admin: 08/07/17 15:37 Dose: 10 ml Cefazolin Sodium (Ancef) Confirm Administered Dose 2 gm .ROUTE .STK-MED ONE Stop: 08/07/17 10:54 Last Admin: 08/07/17 15:30 Dose: 2 gm Cefazolin Sodium (Ancef) Confirm Administered Dose 2 gm .ROUTE .STK-MED ONE Stop: 08/07/17 11:00 Cyclobenzaprine HCl (Flexeril) 10 mg PO TID PRN PRN Reason: Spasms Last Admin: 08/07/17 23:59 Dose: 10 mg Diphtheria/Tetanus/Acell Pertussis (Adacel) 0.5 ml IM .ONCE ONE Stop: 08/08/17 08:05 Docusate Sodium (Colace) 100 mg PO BID PRN PRN Reason: Constipation Ephedrine Sulfate (Ephedrine Sulfate) Confirm Administered Dose 50 mg .ROUTE .STK-MED ONE Stop: 08/07/17 13:51 Epinephrine HCl (Adrenalin 1:1000) Confirm Administered Dose 1 mg .ROUTE .STK- MED ONE Stop: 08/07/17 09:49 Famotidine (Pepcid) 20 mg PO BID [facility] Last Admin: 08/08/17 09:55 Dose: 20 mg Fentanyl (Sublimaze) Confirm Administered Dose 250 mcg .ROUTE .STK-MED ONE Stop: 08/07/17 10:37 Fentanyl (Sublimaze) 50 mcg IVPUSH Q5M PRN PRN Reason: Pain Stop: 08/07/17 16:00 Last Admin: 08/07/17 16:45 Dose: 50 mcg Fentanyl (Sublimaze) Confirm Administered Dose 100 mcg .ROUTE .STK-MED ONE Stop: 08/07/17 14:17 Hydralazine HCl (Apresoline) 10 mg PO Q6H PRN PRN Reason: Hypertension Hydrochlorothiazide (Hydrochlorothiazide) 25 mg PO DAILY [facility] Last Admin: 08/08/17 09:55 Dose: 25 mg Hydromorphone HCl (Dilaudid) 0.5 mg IVPUSH Q15M PRN PRN Reason: severe pain Stop: 08/07/17 16:00 Last Admin: 08/07/17 16:32 Dose: 0.5 mg Hydromorphone HCl (Dilaudid) 0.5 mg IVPUSH Q15M PRN PRN Reason: severe pain Last Admin: 08/07/17 16:50 Dose: 0.5 mg Lactated Ringer's (Ringers, Lactated) 1,000 mls @ 125 mls/hr IV ASDIRECTED [facility] Stop: 08/07/17 23:00 Last Admin: 08/07/17 10:50 Dose: 125 mls/hr Cefazolin Sodium/Dextrose 2 gm (/ Premix) 50 mls @ 100 mls/hr IV Q8H [facility] Stop: 08/08/17 13:29 Last Admin: 08/08/17 13:27 Dose: 100 mls/hr Lidocaine HCl (Xylocaine-Mpf 1%) Confirm Administered Dose 4 mls @ as directed .ROUTE .STK-MED ONE Stop: 08/07/17 10:37 Lactated Ringer's (Ringers, Lactated) Confirm Administered Dose 1,000 mls @ as directed .ROUTE .STK-MED ONE Stop: 08/07/17 10:54 Lactated Ringer's (Ringers, Lactated) Confirm Administered Dose 1,000 mls @ as directed .ROUTE .STK-MED ONE Stop: 08/07/17 14:44 Lactated Ringer's (Ringers, Lactated) Confirm Administered Dose 1,000 mls @ as directed .ROUTE .STK-MED ONE Stop: 08/07/17 16:17 Iodine (Iodine 2% Mild Tincture) Confirm Administered Dose 30 ml .ROUTE .STK- MED ONE Stop: 08/07/17 11:00 Last Admin: 08/07/17 15:29 Dose: 18 ml Levothyroxine Sodium (Levothyroxine) 175 mcg PO ACBRK [facility] Last Admin: 08/08/17 05:42 Dose: Not Given Lidocaine/Sodium Bicarbonate (Buffered Lidocaine 1% In Ns 8.4%) 0.25 ml IV ONETIME PRN PRN Reason: Prior to IV Start Stop: 08/07/17 18:00 Last Admin: 08/07/17 10:50 Dose: 0.25 ml Magnesium Hydroxide (Milk Of Magnesia) 30 ml PO BID PRN PRN Reason: Constipation Midazolam HCl (Versed 1 Mg/Ml) Confirm Administered Dose 2 mg .ROUTE .STK-MED ONE Stop: 08/07/17 10:37 Modafinil (Provigil) 400 mg PO DAILY [facility] Last Admin: 08/08/17 09:55 Dose: 200 mg Morphine Sulfate (Morphine) 2 mg IVPUSH Q2H PRN PRN Reason: Breakthrough Pain Naloxone HCl (Narcan) 0.1 mg IVPUSH Q5M PRN PRN Reason: Oversedation Ondansetron HCl (Zofran) 4 mg IVPUSH Q6H PRN PRN Reason: Nausea/Vomiting Ondansetron HCl (Zofran) 4 mg IVPUSH ONETIME PRN PRN Reason: Nausea/Vomiting Stop: 08/07/17 16:00 Oxycodone/Acetaminophen (Percocet 325-5 Mg) 1 - 2 tab PO Q4H PRN PRN Reason: Pain Last Admin: 08/08/17 09:56 Dose: 2 tab Pneumococcal Polyvalent Vaccine (Pneumovax 23) 0.5 ml IM .ONCE ONE Stop: 08/07/17 17:45 Last Admin: 08/08/17 13:22 Dose: 0.5 ml Propofol (Diprivan 20 Ml) Confirm Administered Dose 200 mg .ROUTE .STK-MED ONE Stop: 08/07/17 10:37 Rocuronium Council (Zemuron) Confirm Administered Dose 50 mg .ROUTE .STK-MED ONE Stop: 08/07/17 10:37 Ropivacaine (Naropin 0.5%) Confirm Administered Dose 30 ml .ROUTE .STK-MED ONE Stop: 08/07/17 09:49 Senna (Senna) 8.6 mg PO BID PRN PRN Reason: Constipation Sodium Chloride (Saline Flush) 10 ml FLUSH ASDIRECTED PRN PRN Reason: Keep Vein Open Stop: 08/07/17 18:00 Tranexamic Acid (Cyklokapron) Confirm Administered Dose 1,000 mg .ROUTE .STK- MED ONE Stop: 08/07/17 10:59 Last Admin: 08/07/17 15:35 Dose: 1,000 mg Vancomycin HCl (Vancomycin) Confirm Administered Dose 1 gm .ROUTE .STK-MED ONE Stop: 08/07/17 11:00 Last Admin: 08/07/17 15:34 Dose: 1 gm *Q Meaningful Use (DIS) - VTE *Q VTE Criteria *Q: - Stroke *Q Stroke Criteria *Q: - AMI *Q AMI Criteria *Q:
--- NOTE | 2017-08-14 11:46 | PCM.OPNOTE ---
- General Post-Op/Procedure Note Date of Surgery/Procedure: 08/07/17 Operative Procedure(s): right total shoulder arthroplasty Pre Op Diagnosis: right glenohumeral arthrosis Post-Op Diagnosis: Same Anesthesia Technique: General ET Tube, Regional Block Primary Surgeon: Dante Rosario Anesthesia Provider: Kamala Nelson Spindle Sander: Stacie Alva Spindle Sander: Johanne Milligan EBL in mLs: 300 Complications: None Condition: Good
--- NOTE | 2017-08-14 12:58 | OR ---
DATE OF OPERATION: 08/07/2017 SURGEON: Dante Rosario MD OPERATION PERFORMED: Right total shoulder arthroplasty. PREOPERATIVE DIAGNOSIS: Right glenohumeral arthrosis. POSTOPERATIVE DIAGNOSIS: Right glenohumeral arthrosis. ANESTHESIA: General endotracheal intubation with regional interscalene block. ANESTHESIA PROVIDER: Kamala eNlson CRNA. ASSISTANTS: Stacie Alva PA-C, and Johanne Milligan LPN. ESTIMATED BLOOD LOSS: 300 mL. COMPLICATIONS: None. CONDITION: Stable. IMPLANTS: 1. Arthrex size 56 x 22 mm humeral head. 2. Arthrex size 9 humeral stem. 3. Large glenoid polyethylene. DESCRIPTION OF PROCEDURE: The patient was identified in the preop holding area, where proper site was marked and identified by the surgeon. The patient was taken back to the operating theater where after adequate anesthesia, the patient's right shoulder was sterilely prepped and draped in the usual sterile fashion. OR-wide time-out was performed. The patient received 2 grams of IV Ancef. At this time, the patient was placed in a reverse Trendelenburg position on a flat-top table. A standard deltopectoral incision was then made. This was taken down to the cephalic vein and the interval. The cephalic vein was then retracted laterally. The interval was dissected. Any subacromial adhesions as well as subdeltoid adhesions were then taken down with the Wetzel scissors. The clavipectoral fascia was then incised. The conjoined tendon was retracted medially. The anterior humeral circumflex vessels were then ligated using an 0 Vicryl stick tie. The biceps tendon was then identified and a #2 FiberWire was used for subpectoral tenodesis. The rotator interval and biceps interval was then opened all the way back to the level of the glenoid. The subscapularis was then peeled back and was tagged with a FiberWire. At this time, the humeral head was dislocated. The patient was noted to have a large inferior osteophyte. This was resected. At this time, guidepin was then placed at the upper outer edge of the humerus down the canal. A drill and an awl were placed down in the middle. Neck cut was then completed in 30 degrees of retroversion. Starting with 5 broach, I was able to broach up to a size 9 which was found to be rotationally and vertically stable. At this time, this was kept in place along with the protector for the humeral surface and attention was turned to the glenoid. Anterior and posterior retractors were placed including the Fukuda retractor posteriorly. Removal of any remaining labrum as well as the biceps tendon was then done at this time. Anterior capsulectomy was then performed as well. At this time, the patient was noted to have a very large glenoid. The large glenoid template was placed and was found to have adequate coverage. The guidepin was then placed in a center- center position. The central guide hole pin was then placed and then circumferential reamer was then placed. The superior as well as inferior PEG holes were then drilled for the inferior awl 3 PEG holes. The awl for the inferior placement of the post was then used. At this time, cement was mixed on the back table. The reamed surfaces of the glenoid were then adequately irrigated with pulse lavage irrigation with Ancef. Cement was packed around the polyethylene glenoid on the back table and then this was placed and impacted into place. It was found to have adequate circumferential fit with no overhang of the glenoid. At this time, attention was turned back to the humerus. It was again noted that the rotator cuff attachment was intact throughout with no signs of tear. At this time, a size 9 broach was left in place. The humeral head was set for version and rotation, and was locked and then was trialed. C-arm fluoroscopy showed no signs of instability throughout with good central placement of both the humeral stem as well as the glenoid. At this time, the size 9 Arthrex humeral stem was impacted into place and a 56 x 22 mm humeral head was impacted into place in the proper rotation. This was then reduced. 1 L of dilute Betadine solution was irrigated through the shoulder along with 3 L of pulse lavage irrigation with Ancef. At this time, the suture limbs that were passed through the previous stem after the drill holes were drilled through the humerus, were then passed through the subscapularis tendon, and these were tied in the typical Arthrex fashion from medial to lateral. It was found to have adequate repair of the subscapularis. At this time, a #2 FiberWire was used for closure of the rotator interval. 2-0 Vicryl was used subcutaneously and Prineo was used for the skin. The patient was placed in a sterile soft dressing and a pillow sling, and was sent to the PACU in a stable condition. TAMI /[id number]
== END 2017-08-08 15:25 | disposition home or self-care (01) | DRG 483 ==
LOC: JD.MS 10:08
PROVIDERS: ADMIT Orthopaedic Surgery; ATTEND Orthopaedic Surgery
PROC: 0RRJ0JZ Replacement of Right Shoulder Joint with Synthetic Substitute, Open Approach (ICD-10-PCS; principal; 2017-08-07)
DX: M19.011 Primary osteoarthritis, right shoulder (principal); I10 Essential (primary) hypertension; E78.00 Pure hypercholesterolemia, unspecified; E03.9 Hypothyroidism, unspecified; M17.9 Osteoarthritis of knee, unspecified; G47.30 Sleep apnea, unspecified; Z79.899 Other long term (current) drug therapy; Z87.891 Personal history of nicotine dependence; H54.7 Unspecified visual loss
CPT/HCPCS: 01638; 36415; 64415; 73020-26-RT; 73020-RT; 76000; 76000-26; 80053; 85027; 90732; 94760; 97110-GP; 97140-GP; 97162-GP; 97165-GO; 97530-GP; 97535-GO; 99231; A9270-GY; C1713; C1776; G0009; J0171; J0690; J1170; J2250; J2704; J2795; J3010; J3370; J3490; J7120

== ENCOUNTER 2018-11-19 06:17 | Day surgery (SDC) | payer MEDICARE, BC ==
[~2018-11-19 06:17] MED LIST changes: -Bisacodyl 5 MG Tab PO PRN; -Cyclobenzaprine 10 MG Tab PO PRN; -Docusate Sodium 100 MG Cap PO PRN; -EPINEPHrine 1 MG/ML SDV ONE; +Lidocaine 1%/Sod Bicarbonate in NS 8.4% 1 ML Syringe IDERM PRN; -Lidocaine 1%/Sod Bicarbonate in NS 8.4% 1 ML Syringe IV PRN; -Magnesium Hydroxide 400 MG/5 ML Susp 30 ML Cup PO PRN; -Morphine 2 MG/ML Syringe IVPUSH PRN; -Naloxone 0.4 MG/ML SDV IVPUSH PRN; -Ondansetron 4 MG/2 ML SDV IVPUSH PRN; -Ropivacaine 0.5% 5 MG/ML 30 ML SDV ONE; -Sennosides 8.6 MG Tab PO PRN
[2018-11-19] MEDS ORDERED: Lidocaine 1% 30 ML SDV ONE (06:29)
[2018-11-19] MEDS ORDERED: Bupivacaine 0.25% 30 ML SDV ONE (06:29)
--- NOTE | 2018-11-19 06:44 | PCM.PREANE ---
Preanesthetic Assessment - Anesthesia/Transfusion/Family Hx Anesthesia History: Prior Anesthesia Without Reaction Family History of Anesthesia Reaction: No Transfusion History: Prior Transfusion Without Reaction - Review of Systems General: No Symptoms Pulmonary: No Symptoms Cardiovascular: No Symptoms Gastrointestinal: No Symptoms Neurological: Numbness (right hand) Other: Reports: Thyroid Problems (hypothyroid) - Physical Assessment NPO Status Date: 11/18/18 NPO Status Time: 00:00 Pulse: 56 O2 Sat by Pulse Oximetry: 98 Respiratory Rate: 16 Blood Pressure: 145/78 Temperature: 36.2 C Height: 1.78 m Weight: 109.316 kg ASA Class: 2 Mental Status: Alert & Oriented x3 Airway Class: Mallampati = 1 Dentition: Reports: Normal Dentition, Ortley(s) Thyro-Mental Finger Breadths: 3 Mouth Opening Finger Breadths: 3 ROM/Head Extension: Full Lungs: Clear to Auscultation, Normal Respiratory Effort Cardiovascular: Regular Rate, Regular Rhythm - Lab Values: Laboratory Last Values MRSA (PCR) Negative 11/14/18 15:56 - Allergies Allergies/Adverse Reactions: Allergies Allergy/AdvReac Type Severity Reaction Status Date / Time No Known Allergies Allergy Verified 09/12/18 12:51 - Blood Blood Available: No Product(s) Available: None - Anesthesia Plan Pre-Op Medication Ordered: None - Acknowledgements Anesthesia Type Planned: MAC Pt an Appropriate Candidate for the Planned Anesthesia: Yes Alternatives and Risks of Anesthesia Discussed w Pt/Guardian: Yes Pt/Guardian Understands and Agrees with Anesthesia Plan: Yes PreAnesthesia Questionnaire HEENT History: Reports: Impaired Vision Cardiovascular History: Reports: Hypertension Other Cardiovascular History: stress test performed in past-shown to be unremarkable Respiratory History: Reports: PE, Sleep Apnea Other Respiratory History: Cough Gastrointestinal History: Reports: Hemorrhoids Genitourinary History: Reports: None HEDIS MANAGER History: Reports: None Musculoskeletal History: Reports: Arthritis, Osteoarthritis, Other (See Below) Other Musculoskeletal History: left knee pain, right shoulder pain, shoulder arthritis, Neurological History: Reports: None Psychiatric History: Reports: Other (See Below) Other Psychiatric History: narcalepsy Endocrine/Metabolic History: Reports: Hypothyroidism, Obesity/BMI 30+ Hematologic History: Reports: Blood Transfusion(s) Immunologic History: Reports: None Oncologic (Cancer) History: Reports: None Dermatologic History: Reports: None Other Dermatologic History: Forearm laceration - Infectious Disease History Infectious Disease History: Reports: Measles, Mumps - Past Surgical History Respiratory Surgical History: Reports: Other (See Below) Neurological Surgical History: Reports: Laminectomy Musculoskeletal Surgical History: Reports: Knee Replacement, Other (See Below) Other Musculoskeletal Surgeries/Procedures:: lower back surgery, right femur hardware, - SUBSTANCE USE Smoking Status *Q: Never Smoker Tobacco Use Within Last Twelve Months: No Second Hand Smoke Exposure: No Days Per Week of Alcohol Use: 1 Number of Drinks Per Day: 0 Total Drinks Per Week: 0 Recreational Drug Use History: No - HOME MEDS Home Medications: Home Meds Modafinil [Provigil] 400 mg PO DAILY PRN 03/11/16 [History] Levothyroxine 175 mcg PO DAILY 08/04/17 [History] Aspirin [Halfprin] 81 mg PO DAILY 09/12/18 [History] Losartan [Cozaar] 25 mg PO DAILY 09/12/18 [History] Acetaminophen/HYDROcodone [[place] 325-5 MG] 1 - 2 tab PO Q6H PRN #10 tablet 11/19 [Rx] - CURRENT (IN HOUSE) MEDS Current Meds: Current Medications Lactated Ringer's (Ringers, Lactated) 1,000 mls @ 125 mls/hr IV ASDIRECTED [facility] Stop: 11/19/18 23:00 Lidocaine/Sodium Bicarbonate (Buffered Lidocaine 1% In Ns 8.4%) 0.25 ml IDERM ONETIME PRN PRN Reason: Prior to IV Start Stop: 11/19/18 18:00 Sodium Chloride (Saline Flush) 10 ml FLUSH ASDIRECTED PRN PRN Reason: Keep Vein Open Stop: 11/19/18 18:00 Discontinued Medications Bupivacaine HCl (Marcaine 0.25%) Confirm Administered Dose 30 ml .ROUTE .STK- MED ONE Stop: 11/19/18 06:30 Lidocaine HCl (Xylocaine-Mpf 1%) Confirm Administered Dose 30 ml .ROUTE .STK- MED ONE Stop: 11/19/18 06:30
[2018-11-19] MEDS ORDERED: fentaNYL 100 MCG/2 ML SDV ONE (06:50)
[2018-11-19] MEDS ORDERED: Propofol 200 MG/20 ML SDV ONE (06:50)
[2018-11-19] MEDS ORDERED: Triamcinolone Acetonide 40 MG/ML 1 ML MDV ONE (06:54)
[2018-11-19] MEDS ORDERED: Bupivacaine 0.25% 10 ML SDV ONE (06:54)
[2018-11-19] MEDS ORDERED: Lidocaine 1% 4 ML ONE (07:02)
[2018-11-19] MEDS ORDERED: ceFAZolin 1 GM Vial ONE (07:24)
[2018-11-19 08:07] VITALS: BP 129/73
--- NOTE | 2018-11-19 08:36 | PCM.OPNOTE ---
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
--- NOTE | 2018-11-19 09:11 | OR ---
DATE OF OPERATION: 11/19/2018 SURGEON: Dante Rosario MD OPERATION PERFORMED: Right carpal tunnel release with right ring finger trigger finger injection. PREOPERATIVE DIAGNOSIS: 1. Right median nerve compression neuropathy. 2. Right ring finger stenosing tenosynovitis. POSTOPERATIVE DIAGNOSIS: 1. Right median nerve compression neuropathy. 2. Right ring finger stenosing tenosynovitis. ANESTHESIA: Local MAC. ANESTHESIA PROVIDER: Michael Blount CRNA. POWER EQUIPMENT MECHANICS INSTRUCTOR: Stacie Alva PA-C. ESTIMATED BLOOD LOSS: Less than 5 mL. COMPLICATIONS: None. CONDITION: Stable. DESCRIPTION OF PROCEDURE: The patient was identified in the preop holding area. Proper site was marked and identified by the surgeon. The patient was taken back to the operating theater where after adequate anesthesia, the patient's right upper extremity was sterilely prepped and draped in the usual sterile fashion. OR time-out was performed. The patient did not receive antibiotics and it is not indicated for soft tissue hand procedure. At this time, the right upper extremity was exsanguinated and an Esmarch was used as a tourniquet on the forearm. At this time, using 1% lidocaine without epinephrine and 0.25% Marcaine without epinephrine, the palmar cutaneous branch of the median nerve was anesthetized and then the incisional site was anesthetized using Gonzáles cardinal line and ulnar border of the fourth digit as reference. Once this had set up, an incision was made. Blunt dissection was taken down to the palmar cutaneous fascia. Palmar cutaneous fascia was incised with a [place] blade. At this time, the transverse carpal ligament was identified. A small rent was made in the transverse carpal ligament with a [place] blade under direct visualization. Resection of the transverse carpal ligament was done distally using tenotomy scissors making sure to stop short of the palmar arch. At this time, attention was turned proximally after it was found to be adequately released. Using the tenotomy scissors keeping the tips ulnar to protect the palmar cutaneous branch of the median nerve, the superficial forearm fascia as well as the transverse carpal ligament were resected proximally. It was found to be adequate release both proximally and distally. At this time, adequate saline was irrigated through the wound. 4-0 nylon sutures were used closure of the skin. The patient was placed in a sterile soft dressing and sent to PACU in stable condition. Under sterile technique, 1 mL of 40 mg Kenalog and 1 mL of 0.25% Marcaine were injected to the right ring finger A1 belen. The patient tolerated both procedures well and sent to PACU in stable condition. TAMI /[id number]
== END 2018-11-19 08:35 | disposition home or self-care (01) ==
LOC: JD.SDS 06:17
PROVIDERS: ATTEND Orthopaedic Surgery
DX: G56.01 Carpal tunnel syndrome, right upper limb (principal); M65.841 Other synovitis and tenosynovitis, right hand; I10 Essential (primary) hypertension; E66.9 Obesity, unspecified; Z68.36 Body mass index [BMI] 36.0-36.9, adult; E78.00 Pure hypercholesterolemia, unspecified; E03.9 Hypothyroidism, unspecified; Z87.891 Personal history of nicotine dependence; Z79.82 Long term (current) use of aspirin; Z79.899 Other long term (current) drug therapy; Z79.890 Hormone replacement therapy
CPT/HCPCS: 20550; 64721; 87641; J0690; J2001; J2704; J3010; J3301; J3490; J7120; 01810

== ENCOUNTER 2022-08-11 07:20 | Day surgery (SDC) | payer MEDICARE, BC ==
[~2022-08-11 07:20] MED LIST changes: +Acetaminophen 325 MG Tab PO SCH; +Dexamethasone 4 MG/ML 5 ML MDV ONE; +Dexmedetomidine 200 MCG/2 ML SDV ONE; +Midazolam 1 MG/ML 2 ML SDV ONE; +Pregabalin 25 MG Cap PO SCH; +Propofol 200 MG/20 ML SDV ONE; +Ropivacaine 0.5% 5 MG/ML 30 ML SDV ONE; +Sodium Chloride 0.9% 10 ML Syringe FLUSH SCH; +Tranexamic Acid 1,000 MG/10 ML Vial ONE; +Vancomycin 1 GM SDV ONE; +fentaNYL 100 MCG/2 ML SDV ONE; +oxyCODONE ER 10 MG TAB.ER PO SCH
[2022-08-11] MEDS ORDERED: Lidocaine 1% 4 ML ONE (07:28)
[2022-08-11] MEDS ORDERED: ceFAZolin 2 GM Vial ONE (08:04)
[2022-08-11] MEDS ORDERED: Propofol 200 MG/20 ML SDV ONE (08:11)
[2022-08-11] MEDS ORDERED: Ondansetron 4 MG/2 ML SDV ONE (08:41)
[2022-08-11] MEDS ORDERED: HYDROmorphone 0.5 MG/0.5 ML Syringe IVPUSH PRN (09:41)
[2022-08-11] MEDS ORDERED: fentaNYL 100 MCG/2 ML SDV IVPUSH PRN (09:41)
[2022-08-11] MEDS ORDERED: oxyCODONE 5 MG Tab PO SCH (10:54)
[2022-08-11 11:05] VITALS: PULSE 68
[2022-08-11 12:47] VITALS: BP 130/80
== END 2022-08-11 12:25 | disposition home or self-care (01) ==
LOC: JD.SDS 07:20
PROVIDERS: ATTEND Orthopaedic Surgery
DX: M19.012 Primary osteoarthritis, left shoulder (principal); E03.9 Hypothyroidism, unspecified; G47.33 Obstructive sleep apnea (adult) (pediatric); I10 Essential (primary) hypertension; E66.9 Obesity, unspecified; F17.200 Nicotine dependence, unspecified, uncomplicated; Z68.32 Body mass index [BMI] 32.0-32.9, adult; Z79.82 Long term (current) use of aspirin; Z79.899 Other long term (current) drug therapy; Z79.890 Hormone replacement therapy; Z96.611 Presence of right artificial shoulder joint; Z98.890 Other specified postprocedural states; Z96.659 Presence of unspecified artificial knee joint
CPT/HCPCS: 23472; 73020; 76000; 97110; 97161; A9270; C1713; C1769; C1776; J0690; J1100; J2250; J2405; J2704; J2795; J3010; J3370; J7120; 01638; 64415; 76942